=== PATIENT | female | born 1960 | race Caucasian/White ===

== ENCOUNTER → 2017-04-05 | Outpatient (CLI) | payer MEDICARE, MEDICAID ==
[~2017-04-05] MED LIST: ALBU8.5H3 INH; CROM20SO2 PO; DENO60DI INJ; DOXE100C PO; DOXY100T9 PO; EPIN0.3P3 INJ; FEXO180T PO; FLUO20CA19 PO; HYDR25TA11 PO; HYDR4TAB16 PO; MONT4TAB5 PO; NORT25CA PO; NORTRIPTYLINE; OMEP-110 PO; OXYC10TA32 PO; PANT40TA3 PO; RANI150T4 PO; [UNRECOGNIZED DRUG - OTHER]
[2017-04-05 15:45] LABS: BLOOD UREA NITROGEN 13 mg/dL (7-18)
[2017-04-05 15:52] LABS: ASPARTATE AMINO TRANSFERASE 22 U/L (15-37); TOTAL IRON BINDING CAPACITY 348 mcg/dL (250-450)
== END | disposition home or self-care (01) ==
LOC: CFH 13:30
PROVIDERS: ATTEND Internal Medicine Endocrinology, Diabetes & Metabolism
DX: G47.30 Sleep apnea, unspecified (principal); K52.89 Other specified noninfective gastroenteritis and colitis; M81.0 Age-related osteoporosis without current pathological fracture
CPT/HCPCS: 36415; 80053; 82310; 82570; 82728; 83540; 83550; 84100; 84105; 85025

== ENCOUNTER → 2017-04-30 | Outpatient (CLI) | payer MEDICARE, MEDICAID | END | disposition home or self-care (01) | LOC: CFH 10:19 | PROVIDERS: ATTEND Otolaryngology | DX: G50.1 Atypical facial pain (principal) | CPT/HCPCS: 70486 ==

== ENCOUNTER → 2017-05-24 | Outpatient (CLI) | payer MEDICARE, MEDICAID ==
[~2017-05-24] MED LIST changes: +ACET125T2 PO; +CYAN25009 PO; +DEXL60CA PO; +DULO60CA7 PO; -HYDR4TAB16 PO; +HYDR4TAB48 PO; +MONT10TA6 PO; +ONDA-39 PO; +OXYC15TA PO; +POLY17PO5 PO; +SODI100P2 PO; +TECTURNA PO
[2017-05-24 15:48] LABS: ASPARTATE AMINO TRANSFERASE 21 U/L (15-37); BLOOD UREA NITROGEN 10 mg/dL (7-18)
== END | disposition home or self-care (01) ==
LOC: STAR 14:09
PROVIDERS: ATTEND Orthopaedic Surgery
DX: Z01.818 Encounter for other preprocedural examination (principal); S68.120A Partial traumatic metacarpophalangeal amputation of right index finger, initial encounter; X58.XXXA Exposure to other specified factors, initial encounter; Y93.89 Activity, other specified; Y92.89 Other specified places as the place of occurrence of the external cause; Y99.8 Other external cause status
CPT/HCPCS: 36415; 80053; 93005

== ENCOUNTER 2017-05-31 13:22 | Day surgery (SDC) | payer MEDICARE, MEDICAID ==
[2017-05-24 14:53] VITALS: BP 140/91
[~2017-05-31] VITALS: Ht 167.6 cm; Wt 99.0 kg
[2017-05-31] MEDS ORDERED: MIDAZOLAM 1 MG/ML, 2ML ONE (13:31)
[2017-05-31] MEDS ORDERED: FENTANYL PF 100 MCG/2ML ONE (13:31)
[2017-05-31] MEDS ORDERED: BUPIVACAINE/PF 0.5% ONE (13:33)
[2017-05-31] MEDS ORDERED: BUPIVACAINE/PF-EPI 0.5% 1:200K ONE (13:34)
[2017-05-31] MEDS ORDERED: BACITRACIN 50,000 UNIT ONE (13:42)
[2017-05-31] MEDS ORDERED: CEFAZOLIN PMX 1GM/50ML 0 ML ONE (13:50)
[2017-05-31] MEDS ORDERED: LACTATED RINGERS 1,000 ML IV SCH (14:02)
[2017-05-31] MEDS ORDERED: CEFAZOLIN 1,000 MG ONE (14:19)
[2017-05-31] MEDS ORDERED: PROPOFOL 10 MG/ML, 20ML ONE (14:19)
[2017-05-31] MEDS ORDERED: HYDROmorphone 1 MG/ML, 1ML IV PRN (14:30)
[2017-05-31] MEDS ORDERED: FENTANYL PF 100 MCG/2ML IV PRN (14:30)
[2017-05-31] MEDS ORDERED: PROMETHAZINE 25 MG/ML, 1ML IV PRN (14:30)
[2017-05-31] MEDS ORDERED: ONDANSETRON 2MG/ML, 2ML IVPush PRN (14:30)
[2017-05-31] MEDS ORDERED: ALBUTEROL SULFATE 2.5 MG/3 ML NPPB PRN (14:30)
[2017-05-31] MEDS ORDERED: OXYcodone 5 MG/5 ML ORAL.SOL UDC PO PRN (14:30)
== END 2017-05-31 16:50 ==
LOC: OR 13:22
PROVIDERS: ATTEND Orthopaedic Surgery
DX: S68.110A Complete traumatic metacarpophalangeal amputation of right index finger, initial encounter (principal); K21.9 Gastro-esophageal reflux disease without esophagitis; K58.9 Irritable bowel syndrome, unspecified; X58.XXXA Exposure to other specified factors, initial encounter; Y93.89 Activity, other specified; Y92.89 Other specified places as the place of occurrence of the external cause; Y99.8 Other external cause status; Z88.6 Allergy status to analgesic agent; Z88.8 Allergy status to other drugs, medicaments and biological substances; Z86.73 Personal history of transient ischemic attack (TIA), and cerebral infarction without residual deficits
CPT/HCPCS: 26951; J0690; J2250; J2704; J3010; J7120; J3490

== ENCOUNTER 2017-08-07 14:48 | Emergency (ER) | payer MEDICARE, MEDICAID ==
[~2017-08-07] VITALS: Ht 167.6 cm; Wt 101.0 kg
[~2017-08-07 14:48] MED LIST changes: -ALBU8.5H3 INH; +ALBU8.5H8 INH; -DEXL60CA PO; +DEXL60CA2 PO; -ONDA-39 PO; +ONDA4TAB12 PO; -OXYC10TA32 PO; +OXYC10TA47 PO
[2017-08-07] MEDS ORDERED: FAMOTIDINE 20 MG/2 ML ONE (15:29)
[2017-08-07] MEDS ORDERED: methylPREDNISolone SOD SUCC 125 MG/2 ML ONE (15:29)
[2017-08-07] MEDS ORDERED: methylPREDNISolone SOD SUCC 125 MG/2 ML IVPush ONE (15:30)
[2017-08-07] MEDS ORDERED: FAMOTIDINE 20 MG/2 ML IVPush ONE (15:30)
[2017-08-07] MEDS ORDERED: SODIUM CHLORIDE 0.9% 1,000ML IVBOLUS ONE (15:30)
[2017-08-07] MEDS ORDERED: SODIUM CHLORIDE FLUSH 10ML SYR IVF ONE (15:30)
[2017-08-07 16:53] VITALS: BP 125/79
[2017-08-07] MEDS ORDERED: ONDANSETRON 2MG/ML, 2ML ONE (17:11)
[2017-08-07] MEDS ORDERED: OXYcodone/APAP 5/325MG TABLET ONE ×2 (17:11→17:12)
[2017-08-07] MEDS ORDERED: OXYcodone/APAP 5/325MG TABLET PO ONE (17:30)
[2017-08-07] MEDS ORDERED: ONDANSETRON 2MG/ML, 2ML IVPush ONE (17:30)
== END 2017-08-07 18:03 | disposition home or self-care (01) ==
LOC: ED 17:56
DX: T78.1XXA Other adverse food reactions, not elsewhere classified, initial encounter (principal); X58.XXXA Exposure to other specified factors, initial encounter; K21.9 Gastro-esophageal reflux disease without esophagitis; I10 Essential (primary) hypertension
CPT/HCPCS: 96361; 96374; 96375; 99284; J2405; J2930; J7030; S0028

== ENCOUNTER 2018-01-06 22:48 | Emergency (ER) | payer MEDICARE, MEDICAID ==
[~2018-01-06] VITALS: Ht 167.6 cm; Wt 100.0 kg
[2018-01-06] MEDS ORDERED: SODIUM CHLORIDE 0.9% 1,000ML IVBOLUS ONE (23:30)
[2018-01-06] MEDS ORDERED: KETOROLAC 30 MG/1 ML IVPush ONE (23:30)
[2018-01-07] MEDS ORDERED: KETOROLAC 30 MG/1 ML ONE
[2018-01-07 00:06] LABS: BASOPHILS # (AUTO) 0.04 x10^3/uL (0-0.1); BASOPHILS % (AUTO) 1 % (0-1); EOSINOPHILS # (AUTO) 0.26 x10^3/uL (0-0.4); EOSINOPHILS % (AUTO) 4 % (1-7); LYMPHOCYTES # (AUTO) 2.27 x10^3/uL (1-3.4); LYMPHOCYTES % (AUTO) 33 % (22-44); MD NO; MEAN CORPUSCULAR HEMOGLOBIN 30.7 pg (27.0-34.8); MEAN CORPUSCULAR HGB CONC 33.7 g/dL (32.4-35.8); MEAN CORPUSCULAR VOLUME 91.1 fL (80-100); MEAN PLATELET VOLUME 7.2 fL (7.4-10.4); MONOCYTES # (AUTO) 0.51 x10^3/uL (0.2-0.8); MONOCYTES % (AUTO) 7 % (2-9); NEUTROPHILS % (AUTO) 56 % (42-75); PLATELET COUNT 354 x10^3/uL (130-400); RED BLOOD COUNT 4.57 x10^6/uL (3.82-5.3); RED CELL DISTRIBUTION WIDTH 13.7 % (9.6-15.2)
[2018-01-07 00:08] LABS: ANION GAP 8 mmol/L (5-15); CALCIUM 9.1 mg/dL (8.5-10.1); CHLORIDE 106 mmol/L (98-107); CREATININE 0.73 mg/dL (0.55-1.02)
[2018-01-07 00:09] LABS: ALANINE AMINOTRANSFERASE 59 U/L (12-78); ALBUMIN 3.7 g/dL (3.4-5.0)
[2018-01-07 00:13] LABS: ALKALINE PHOSPHATASE 90 U/L (45-117); BILIRUBIN,TOTAL 0.4 mg/dL (0.2-1.0); TOTAL PROTEIN 7.7 g/dL (6.4-8.2); TROPONIN I < 0.015 ng/mL (0.000-0.045)
[2018-01-07 01:00] LABS: MICROSCOPIC NOT IND
[2018-01-07 01:03] LABS: CULTURE INDICATED? NO
[2018-01-07] MEDS ORDERED: OXYcodone/APAP 5/325MG TABLET ONE (03:02)
[2018-01-07 03:09] VITALS: BP 120/67
[2018-01-07] MEDS ORDERED: OXYcodone/APAP 5/325MG TABLET PO ONE (03:30)
== END 2018-01-07 03:17 | disposition home or self-care (01) ==
LOC: ED 23:59
DX: R53.1 Weakness (principal); M79.7 Fibromyalgia; R07.9 Chest pain, unspecified; I10 Essential (primary) hypertension; K21.9 Gastro-esophageal reflux disease without esophagitis
CPT/HCPCS: 36415; 70450; 71045; 80053; 81003; 83690; 84443; 84484; 85025; 93005; 96361; 96374; 99285; J1885; J7030